=== PATIENT | female | born 1980 | race Caucasian/White ===

== ENCOUNTER 2017-03-04 12:13 | Emergency (ER) | payer OTHER ==
--- NOTE | 2017-03-04 12:22 | UC ---
Throat Pain/Nasal Jarad HPI - HPI Summary HPI Summary: 36 y/o female presents to the urgent care c/o RT ear pain, sore throat since yesterday. Pt reports she had bronchitis about 10 days ago Dx by her PCP with Bronchitis and was Rx ABXs, she can't recall the name. However about 2 days ago she had fever of 101F for which took Ibuprofen PO. Her ear pain is worse today 10/25. Pt denies fever today, cough, SOB, chest pain, abdominal pain, N/V/ D. - History of Current Complaint Chief Complaint: UCGeneralIllness Stated Complaint: RT EAR,THROAT Time Seen by Provider: 03/04/17 12:20 Hx Obtained From: Patient ?: No Onset/Duration: Gradual Onset, Lasting Days - 10 days, Still Present Severity: Moderate Pain Intensity: 7 Pain Scale Used: 0-10 Numeric Cough: None Associated Signs & Symptoms: Positive: Dysphagia, Fever - Epiglottits Risk Factors Epiglottis Risk Factors: Negative - Allergies/Home Medications Allergies/Adverse Reactions: Allergies Allergy/AdvReac Type Severity Reaction Status Date / Time Amoxicillin [From Augmentin] Allergy Severe Hives Verified 03/04/17 12:27 Clavulanic Acid Allergy Severe Hives Verified 03/04/17 12:27 [From Augmentin] Home Medications: Home Medications Fluticasone-Salmeterol 100-50* [Advair Diskus 100-50*] 1 puff BID 03/04/17 [ History Confirmed 03/04/17] Montelukast Sodium TAB* [Singulair 10 MG TAB*] 10 mg DAILY 03/04/17 [History Confirmed 03/04/17] PMH/Surg Hx/FS Hx/Imm Hx Previously Healthy: Yes Respiratory History: Asthma - Social History Occupation: Employed Full-time Lives: With Family Review of Systems Constitutional: Fever Skin: Negative Eyes: Negative ENT: Sore Throat, Ear Ache - RT ear pain Respiratory: Negative Cardiovascular: Negative Gastrointestinal: Negative Genitourinary: Negative Motor: Negative Neurovascular: Negative Musculoskeletal: Negative Neurological: Negative Psychological: Negative Is Patient Immunocompromised?: No All Other Systems Reviewed And Are Negative: Yes Physical Exam Triage Information Reviewed: Yes - Additional Comments Vital signs: reviewed General: well nourished, well developed obese female sitting in the examining table w/o any apparent distress. Skin: [place], warm and dry, no evidence of atopic dermatitis, psoriasis, seborrhea. HEENT: -Head: atraumatic, non tender; no scalp dermatitis. -Eyes: sclera and conjunctiva clear, PERRLA, EOMI -Ears: no pre- or postauricular lymphadenopathy or erythema; RTclear, Rt TM with erythema, no light reflex and mild purulent discharge. LF external ear canal clear and LF TM WNL. No fluid level, vesicles, or bullae. No perforation. -Nose/Face: erythematous and edematous nasal mucosa with clear rhinorrhea, no frontal or maxillary sinus tender to palpation. -Mouth/Throat: Mucous membrane moist, pharynx with mild erythema, no exudates.No tonsilar enalrgement, no exudates Neck: supple, FROM, nontender, no lymphadenopathy, no meningismus. Chest: Clear to auscultation, normal breath sounds Abd: soft, Bowel sounds active, Nontender. Back: no spinal or CVAT Neuro: A&O x4, GCS 15, no focal neuro deficits, normal behavior for age. Skin: warm and dry Throat Pain/Nasal Course/Dx - Course Course Of Treatment: 36 y/o female presents to the urgent care c/o RT ear pain, sore throat since yesterday. Pt reports she had bronchitis about 10 days ago Dx by her PCP with Bronchitis and was Rx ABXs, she can't recall the name. However about 2 days ago she had fever of 101F for which took Ibuprofen PO. Her ear pain is worse today /10. Pt denies fever today, cough, SOB, chest pain, abdominal pain, N/V/D.Hx obtained. Pt with RT otitis media on examination and pharyngitis.Rapid strep ordered, result: negative. Pt PCP allergic . PT Rx Z- juan PO ibuprofen PO to alleviate symptoms of ear pain and swelling. . Pt advised to rest, eat well. If symptoms do not improve or worsen advised to return to the urgent care or f/u with her PCP for further evaluation and treatment. Pt understood and agreed with D/C instructions - Differential Dx/Diagnosis Differential Diagnosis/HQI/PQRI: Influenza, Laryngitis, Mononucleosis, Otitis Media, Pharyngitis, Sinusitis, Tonsillitis, URI Provider Diagnoses: 1- RT Acute otitis media. 2-Pharyngitis Discharge - Discharge Plan Condition: Stable Disposition: HOME Prescriptions: Azithromyxin JUAN (NF) [Z-Juan (Zithromax) 250 mg tabs #6] 2 tab PO .TODAY, THEN 1 DAILY #6 tab Ibuprofen TAB* [Motrin TAB* 800 MG] 800 mg PO Q6H #20 tab Patient Education Materials: Otitis Media (ED), Pharyngitis (ED) Referrals: [facility] [place] [facility] [Outside] - If Needed Additional Instructions: 1-Please take antibiotic as directed. 2-Take ibuprofen PO after meals for pain. 3-If symptoms do not improve or worsen please f/u with your PCP or return to the urgent care for further evaluation and treatment.
[2017-03-04 12:35] VITALS: BP 119/79
== END 2017-03-04 13:12 | disposition home or self-care (01) ==
LOC: UCCORT 12:13
DX: H66.91 Otitis media, unspecified, right ear (principal); J02.9 Acute pharyngitis, unspecified
CPT/HCPCS: 87651; 99202; G0463

== ENCOUNTER 2017-05-23 10:09 | Emergency (ER) | payer OTHER ==
[2017-05-23 11:49] VITALS: BP 138/91
--- NOTE | 2017-05-23 12:24 | UC ---
Respiratory Complaint HPI - HPI Summary HPI Summary: 36 y/o female presents to the urgent care c/o productive cough and wheezing for the past two weeks. Pt reports mild wheezing that started 2 days ago w/ mild SOB when she goes outside. Pt states cough is producing a yellowish phlegm. No known fever. But have felt with chills. She has taking Mucinex PO to alleviate cough. She run out of her albuterol inhaler and liq for the nebulizer Tx. Pt denies chest pain, abdominal pain, dizziness, N/V/D. - History of Current Complaint Chief Complaint: UCRespiratory Stated Complaint: COUGH WHEEZY Time Seen by Provider: 05/23/17 12:23 Hx Obtained From: Patient Hx Last Menstrual Period: s/p Ablation and Tubal Onset/Duration: Gradual Onset, Lasting Weeks - 2 weeks, Still Present, Worse Since - 2 days ago Timing: Intermittent Episodes Severity Initially: Mild Severity Currently: Moderate Pain Intensity: 0 Pain Scale Used: 0-10 Numeric Character: Cough: Productive, Sputum Description: - yellowish Aggravating Factors: Recumbent Position Alleviating Factors: Bronchodilator, OTC Meds Associated Signs And Symptoms: Positive: Chills, Wheezing, URI, Nasal Congestion - Risk Factors Pulmonary Embolism Risk Factors: Negative Cardiac Risk Factors: Negative Pseudomonas Risk Factors: Negative Tuberculosis Risk Factors: Negative - Allergies/Home Medications Allergies/Adverse Reactions: Allergies Allergy/AdvReac Type Severity Reaction Status Date / Time clavulanic acid Allergy Hives Verified 05/23/17 11:43 Home Medications: Home Medications Cholecalciferol TAB* [Vitamin D TAB*] 2,000 units PO DAILY 05/23/17 [History Confirmed 05/23/17] LoraTADine TAB(NF) [Claritin 10 MG TAB(NF)] 10 mg PO DAILY 05/23/17 [History Confirmed 05/23/17] guaiFENesin ER TAB [Mucinex*] 600 - 1,200 mg PO BID 05/23/17 [History Confirmed 05/23/17] PMH/Surg Hx/FS Hx/Imm Hx Previously Healthy: Yes Respiratory History: Asthma - Surgical History Surgical History: Yes Surgery Procedure, Year, and Place: 1995 CYST REMOVAL LEFT MIDDLE FINGER. 2010 BIOPSY LOWER LIP. 2012 TUBAL LIGATION. 2013 ABLATION. 2013 CARPAL TUNNEL; KIDNEY STONESX2. 2015 KIDNEY STENTS - Family History Known Family History: Positive: Respiratory Disease - asthma - Social History Occupation: Employed Full-time Lives: With Family Alcohol Use: None Substance Use Type: None Smoking Status (MU): Never Smoked Tobacco Household Exposure Type: Cigarettes - Immunization History Most Recent Influenza Vaccination: 2017 Review of Systems Constitutional: Chills Skin: Negative Eyes: Negative ENT: Nasal Discharge, Sinus Congestion Respiratory: Shortness Of Breath - at times, Cough - productive, Other - wheezing Cardiovascular: Negative Gastrointestinal: Negative Genitourinary: Negative Motor: Negative Neurovascular: Negative Musculoskeletal: Negative Neurological: Negative Psychological: Negative Is Patient Immunocompromised?: No All Other Systems Reviewed And Are Negative: Yes Physical Exam Triage Information Reviewed: Yes Vital Signs: Initial Vital Signs Temp 98.3 F 05/23/17 11:42 Pulse 88 05/23/17 11:42 Resp 18 05/23/17 11:42 BP 138/91 05/23/17 11:42 Pulse Ox 100 05/23/17 11:42 - Additional Comments Vital Signs Reviewed: Yes General: well developed, well nourished female sitting in the examining table w/ o any apparent distress Eyes: Positive: Conjunctiva Clear - PERRLA, EOMI, fundi grossly normal ENT: Positive: Normal ENT inspection, Hearing grossly normal, Pharynx normal, Nasal congestion - edematous and erythematous nasal mucosa, Nasal drainage - yellowish drainage, TMs normal. Negative: Tonsillar swelling, Tonsillar exudate Neck: Positive: Supple, Nontender, No Lymphadenopathy Respiratory: no orthopnea or dyspnea. Able to speak in full sentences, no retractions or accessory muscle use, no tripod position, stridor, or head bobbing. Positive breadth sound, B/L posterior lungs w/ scattered wheezing and mild rhonchi. No rales. Cardiovascular: Positive: RRR, No Murmur, Pulses Normal, Brisk Capillary Refill Abdomen Description: Positive: Nontender, No Organomegaly, Soft. Negative: CVA Tenderness (R), CVA Tenderness (L) Bowel Sounds: Positive: Present Musculoskeletal Exam: Normal Musculoskeletal: Positive: Strength Intact, ROM Intact, No Edema Neurological Exam: Normal Psychological Exam: Normal Skin Exam: Normal UC Diagnostic Evaluation - Laboratory O2 Sat by Pulse Oximetry: 100 Respiratory Course/Dx - Course Course Of Treatment: 36 y/o female presents to the urgent care c/o productive cough and wheezing for the past two weeks. Pt reports mild wheezing that started 2 days ago w/ mild SOB when she goes outside. Pt states cough is producing a yellowish phlegm. No known fever. But have felt with chills. She has taking Mucinex PO to alleviate cough. She run out of her albuterol inhaler and liq for the nebulizer Tx. Pt denies chest pain, abdominal pain, dizziness, N /V/D. Hx obtained. Pt w/ Positive breadth sound, B/L posterior lungs w/ scattered wheezing and mild rhonchi. No rales on examination. PT w/ asthma exacerbation: due to Acute Bronchitis: Albuterol Treatment and Prednsione PO ordered, 1 Tx given to patient. Patient tolerated well treatment and lungs improved, mild wheezing only in posterior RT lung, O2 sat 100%. Patient left the clinic ambulating and feeling better. Patient prescribed Z-juan, Prednisone PO and albuterol inhaler, as directed below. The patient was recommended to increase fluid intake and rest. Pt's BP is elevated today advised to decrease salt in diet, monitor BP and f/u with PCP for further management. Patient recommended to return to the clinic or go to the nearest ER if symptoms do not improve or worsen. Patient understood and agree w/ plan of care. - Differential Dx/Diagnosis Differential Diagnosis/HQI/PQRI: Asthma, Bronchitis, Exacerbation Of COPD, Laryngitis, Lower Resp Infection, Sinusitis Provider Diagnoses: 1- Acute bronchitis. 2-Asthma exacerbation. 3- Elevated BP w/o Hx of HTN Discharge - Discharge Plan Condition: Stable Disposition: HOME Prescriptions: Albuterol 2.5MG/3ML (0.083%)* [Ventolin 2.5 MG/3 ML NEB.ISAI*] 2.5 mg INH Q6H #1 juan Albuterol HFA INHALER* [Ventolin HFA Inhaler*] 1 - 2 puff INH Q6H PRN #1 mdi PRN Reason: Wheezing Azithromyxin JUAN (NF) [Z-Juan (Zithromax) 250 mg tabs #6] 2 tab PO .TODAY, THEN 1 DAILY #6 tab predniSONE TAB* [Deltasone TAB*] 20 mg PO DAILY #8 tab Patient Education Materials: Asthma (ED), Acute Bronchitis (ED), Low-Sodium Diet (ED) Referrals: [facility] [place] [facility] [Outside] - 2 Days Additional Instructions: 1-Please take full course of antibiotic to avoid resistance. 2-Continue taking Mucinex PO tabs for your cough and use the albuterol inhaler to alleviate wheezing. Increase fluid intake, rest and eat well. 3- If symptoms do not improve or worsen or your develop SOB with fever and severe wheezing please go immediately to the ER further evaluation and treatment. 4- F/u with your PCP in 2-3 days for further management on your Asthma 5-Your BP is elevated today. please decrease salt in your diet, monitor BP and if it continues to be elevated please f/u with your PCP for further management
[2017-05-23] MEDS ORDERED: Albuterol 2.5 MG/3 ML NEB.SOL* (0.083%) INH ONE (12:41)
[2017-05-23] MEDS ORDERED: predniSONE TAB* 20 MG PO ONE (12:41)
== END 2017-05-23 13:38 | disposition home or self-care (01) ==
LOC: UCCORT 10:09
DX: J20.9 Acute bronchitis, unspecified (principal); J45.901 Unspecified asthma with (acute) exacerbation; R03.0 Elevated blood-pressure reading, without diagnosis of hypertension
CPT/HCPCS: 99212; G0463; J7512

== ENCOUNTER 2017-06-05 09:22 | Emergency (ER) | payer OTHER ==
[2017-06-05 11:28] VITALS: BP 138/79
--- NOTE | 2017-06-05 11:54 | UC ---
Shoulder Pain HPI - HPI Summary HPI Summary: 36 yo female with on and off right shoulder pain x 1 yr has been constant x 2 weeks hurts to lay on it no relief with NSAIDs no relief with muscle relaxants has not had XRs - History of Current Complaint Chief Complaint: UCUpperExtremity Stated Complaint: RIGHT SHOULDER PAIN Time Seen by Provider: 06/05/17 11:18 Hx Obtained From: Patient Hx Last Menstrual Period: s/p Ablation and Tubal Onset/Duration: Gradual Onset Severity Currently: Moderate Pain Intensity: 8 Pain Scale Used: 0-10 Numeric Character: Aching, Throbbing Aggravating Factor(s): Movement Alleviating Factor(s): Nothing Associated Signs And Symptoms: Positive: Negative Related History: Dominant Hand Right - Allergies/Home Medications Allergies/Adverse Reactions: Allergies Allergy/AdvReac Type Severity Reaction Status Date / Time clavulanic acid Allergy Hives Verified 06/05/17 11:28 Home Medications: Home Medications Migraine Medicine 1 dose PO ONCE PRN 06/05/17 [History Confirmed 06/05/17] Naproxen Sodium [Aleve] 440 mg PO ONCE 06/05/17 [History Confirmed 06/05/17] PMH/Surg Hx/FS Hx/Imm Hx Previously Healthy: Yes - Surgical History Surgical History: Yes Surgery Procedure, Year, and Place: 1995 CYST REMOVAL LEFT MIDDLE FINGER. 2010 BIOPSY LOWER LIP. 2012 TUBAL LIGATION. 2013 ABLATION. 2014 CARPAL TUNNEL; KIDNEY STONESX2. 2015 KIDNEY STENTS - Family History Known Family History: Positive: Hypertension, Diabetes, Respiratory Disease - asthma - Social History Alcohol Use: None Substance Use Type: None Smoking Status (MU): Never Smoked Tobacco Household Exposure Type: Cigarettes - Immunization History Most Recent Influenza Vaccination: 2017 Review of Systems Constitutional: Negative Skin: Negative Eyes: Negative ENT: Negative Respiratory: Negative Cardiovascular: Negative Gastrointestinal: Negative Genitourinary: Negative Motor: Negative Neurovascular: Negative Musculoskeletal: Arthralgia Neurological: Negative Psychological: Negative Is Patient Immunocompromised?: No All Other Systems Reviewed And Are Negative: Yes Physical Exam Triage Information Reviewed: Yes Appearance: Well-Appearing, No Pain Distress, Well-Nourished Vital Signs: Initial Vital Signs Temp 99.0 F 06/05/17 11:25 Pulse 105 06/05/17 11:25 Resp 14 06/05/17 11:25 BP 138/79 02/18/18 11:25 Pulse Ox 95 06/05/17 11:25 Eyes: Positive: Conjunctiva Clear ENT: Positive: Normal ENT inspection Neck: Positive: Supple, Nontender, No Lymphadenopathy Respiratory: Positive: Lungs clear, Normal breath sounds, No respiratory distress, No accessory muscle use Cardiovascular: Positive: RRR, No Murmur Musculoskeletal: Positive: ROM Intact - but painful, No Edema Neurological: Positive: Alert Psychological Exam: Normal Skin Exam: Normal Diagnostics - Radiology No standard instances Xray Interpretation: No Acute Changes Radiology Interpretation Completed By: Radiologist Shoulder Course/Dx - Differential Dx/Diagnosis Provider Diagnoses: RIGHT SHOULDER PAIN SUSPECT TENDONITIS Discharge - Discharge Plan Condition: Stable Disposition: HOME Patient Education Materials: Shoulder Pain (ED) Referrals: Parag Rm MD [Medical Doctor] - 1 Week Tiffany Thorne NP [Primary Care Provider] - If Needed Additional Instructions: ALEVE 2 TWICE DAILY WITH FOOD FOR PAIN
--- NOTE | 2017-06-05 12:08 | RAD ---
INDICATION: Intermittent right shoulder pain. TECHNIQUE: 4 views of the right shoulder were obtained. FINDINGS: The bones are in normal alignment. No fracture is seen. Joint spaces appear maintained. IMPRESSION: NO EVIDENCE OF FRACTURE.
[2017-06-05] MEDS ORDERED: Triamcinolone Acetonide* 40 MG/ML 1 ML VIAL IM ONE (12:22)
== END 2017-06-05 12:49 | disposition home or self-care (01) ==
LOC: UCCORT 09:22
DX: M25.511 Pain in right shoulder (principal); Z88.1 Allergy status to other antibiotic agents
CPT/HCPCS: 96372; 99211; G0463; J3301

== ENCOUNTER 2017-08-06 09:58 | Emergency (ER) | payer OTHER ==
[2017-08-06 11:16] VITALS: BP 146/77
--- NOTE | 2017-08-06 11:23 | UC ---
UC General HPI - HPI Summary HPI Summary: Pt is c/o a cough, sob and some wheezing for 2 weeks. it began with a cold. she has asthma but ran out of her inhaler and neb solutions. no cp or fever. - History of Current Complaint Chief Complaint: UCRespiratory Stated Complaint: COUGH/CONGESTION Time Seen by Provider: 08/06/17 11:17 Hx Obtained From: Patient Hx Last Menstrual Period: early July Onset/Duration: Gradual Onset Timing: Constant Pain Intensity: 0 Aggravating: nothing Alleviating: nothing Associated Signs & Symptoms: Positive: SOB, Wheezing. Negative: Fever - Allergy/Home Medications Allergies/Adverse Reactions: Allergies Allergy/AdvReac Type Severity Reaction Status Date / Time amoxicillin [From Augmentin] Allergy Hives Verified 08/06/17 11:18 clavulanic acid Allergy Hives Verified 06/05/17 11:28 Home Medications: Home Medications Cholecalciferol TAB* [Vitamin D TAB*] 2,000 units PO DAILY 08/06/17 [History Confirmed 08/06/17] guaiFENesin ER TAB [Mucinex*] 600 mg PO BID 08/06/17 [History Confirmed 08/06/17 ] PMH/Surg Hx/FS Hx/Imm Hx - Additional Past Medical History Additional PMH: allergies Respiratory History: Asthma Neurological History: Migraine - Surgical History Surgical History: Yes Surgery Procedure, Year, and Place: 1995 CYST REMOVAL LEFT MIDDLE FINGER. 2010 BIOPSY LOWER LIP. 2012 TUBAL LIGATION. 2013 ABLATION uterine. 2014 CARPAL TUNNEL; KIDNEY STONESX2. 2015 KIDNEY STENTS - Family History Known Family History: Positive: Hypertension, Diabetes, Respiratory Disease - asthma - Social History Occupation: Employed Full-time Lives: With Family Alcohol Use: None Substance Use Type: None Smoking Status (MU): Never Smoked Tobacco Household Exposure Type: Cigarettes - Immunization History Most Recent Influenza Vaccination: 2017 Vaccination Up to Date: Yes Review of Systems Constitutional: Negative Skin: Negative Eyes: Negative ENT: Sore Throat, Nasal Discharge Respiratory: Shortness Of Breath, Cough Cardiovascular: Negative Gastrointestinal: Negative Genitourinary: Negative Motor: Negative Neurovascular: Negative Musculoskeletal: Negative Neurological: Negative Psychological: Negative Is Patient Immunocompromised?: No All Other Systems Reviewed And Are Negative: Yes Physical Exam Triage Information Reviewed: Yes Appearance: Well-Appearing Vital Signs: Initial Vital Signs Temp 99.6 F 08/06/17 11:07 Pulse 87 08/06/17 11:07 Resp 20 08/06/17 11:07 BP 146/77 08/06/17 11:07 Pulse Ox 99 08/06/17 11:07 Vital Signs Reviewed: Yes Eyes: Positive: Conjunctiva Clear ENT: Positive: Pharynx normal, TMs normal. Negative: Nasal drainage Neck: Positive: Supple, Nontender, No Lymphadenopathy Respiratory: Positive: No respiratory distress, No accessory muscle use, Decreased breath sounds, Wheezing - occasional wheezes, Other: - cough is bronchospastic Cardiovascular: Positive: RRR, No Murmur Abdomen Description: Positive: Nontender, No Organomegaly, Soft Bowel Sounds: Positive: Present Musculoskeletal: Positive: ROM Intact Neurological: Positive: Alert Psychological: Positive: Age Appropriate Behavior Skin Exam: Normal Course/Dx - Course Course Of Treatment: no hx HTN, I think BP illness related. will have BP rechecked on f/u visit. work note declined. pt off until tuesday. - Differential Dx - Multi-Symptom Provider Diagnoses: asthma flare Discharge - Sign-Out/Discharge Documenting (check all that apply): Discharge - Discharge Plan Condition: Stable Disposition: HOME Prescriptions: Albuterol 2.5MG/3ML (0.083%)* [Ventolin 2.5 MG/3 ML NEB.ISAI*] 2.5 mg INH Q6H PRN #1 box PRN Reason: Sob/Wheezing Albuterol HFA INHALER* [Ventolin HFA Inhaler*] 2 puff INH Q6H #1 mdi predniSONE TAB* [Deltasone TAB*] 40 mg PO DAILY 5 Days #10 tab Patient Education Materials: Asthma (ED) Referrals: Rosalba Winters MD [Primary Care Provider] - 5 Days Additional Instructions: USE THE ALBUTEROL INHALER OR NEBULIZER BUT NOT BOTH AT THE SAME TIME. - Billing Disposition and Condition Condition: STABLE Disposition: HOME
== END 2017-08-06 11:50 | disposition home or self-care (01) ==
LOC: UCCORT 09:58
DX: J45.909 Unspecified asthma, uncomplicated (principal); Z88.3 Allergy status to other anti-infective agents; Z88.8 Allergy status to other drugs, medicaments and biological substances
CPT/HCPCS: 99212; G0463

== ENCOUNTER 2017-09-16 09:08 | Emergency (ER) | payer OTHER ==
--- OUTSIDE RECORDS SUMMARY | 2017-09-16 11:08 | XMS REPORT ---
:1980 External Reference #:[id number] Author Organization [facility] 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 Tender Unavailable Rosalba Winters MD Primary Care Physician Unavailable Payers Type Date Identification Numbers Payment Provider Subscriber Commercial Policy Number: [id number] [facility] Caroline Borges PayID: [id number] [address] [place] [address] Problems Date Description Provider Status Onset: 06/24/2017 Obesity Rosalba Winters MD Active Onset: 06/24/2017 Migraine with typical aura Rosalba Winters MD Active Onset: 06/24/2017 Impaired fasting glycaemia Rosalba Winters MD Active Onset: 06/24/2017 Mild persistent asthma Rosalba Winters MD Active Onset: 02/01/2017 Sprain of ankle Samuel Walters M.D. Active Onset: 02/01/2017 Arthralgia of the ankle and/or foot Samuel Walters M.D. Active Family History Date Family Member(s) Problem(s) Comments Father Diabetes Mother Asthma Mother Fibromyalgia Children 3 Siblings 4 Social History Type Date Description Comments Lives With Son Occupation Currently Working [employer] Work Status Currently Working Hand Dominance Right-handed Cigarette Use Never Smoked Cigarettes ETOH Use Denies alcohol use Recreational Drug Use Never Used Drugs Smoking Patient has never smoked Daily Caffeine Does Not Consume Caffeine Allergies, Adverse Reactions, Alerts Date Description Reaction Status Severity Comments 02/01/2017 Penicillin active 02/01/2017 Wheat active 02/01/2017 Tomatoes active 06/24/2017 Augmentin active 08/22/2017 Lettuce active 08/22/2017 Soy active Medications Medication Date Status Form Strength Qnty SIG Indications Ordering Provider Advair Diskus 08/22 Active Aerosol 250-50mcg 1unit 1 puff /Dose s twice a Savita Huynh day, rinse after administrat ion. Mucinex 08/22 Active Tablets 600mg 30tab 1 tab by R05 ER 12HR s mouth twice Savita Huynh a day Nystatin 08/22 Hx Cream 045244Hmn 45gm apply to B37.2 t/GM affected Savita Huynh - area of the 09/01 groin twice /2017 a day for 7-10 days Ventolin HFA Active Aerosol 108(90Bas Inhale Two Unknown /0000 e) Puffs By mcg/Act Mouth Every 6 Hours as Needed Ibuprofen Active Tablets 800mg Unknown /0000 Triamcinolone Active Aerosol 55mcg/Act [place] 2 Unknown Acetonide /0000 Sprays Intranasall y Once Daily Loratadine Active Tablets 10mg Take One Unknown /0000 Tablet By Mouth Every Day Montelukast Sodium Active Tablets 10mg Fadumo,Er /0000 ika J [employer] Sumatriptan Active Tablets 50mg Fadumo,Er Succinate /0000 ika J [employer] WORK[employer] Meloxicam 03/08 Hx Tablets 15mg 30tab 1 by mouth s every day Abraham Ricks M.D. 06/24 Claritin-D 12 Hour Hx Tablets 5-120mg 1 by mouth Unknown /0000 ER 12HR twice a day - as needed 06/24 for congestion/ allergies Advair Diskus Hx Aerosol 100-50mcg 1 puff bid Rosalba /0000 /Dose Abraham Winters MD 08/22 Methylprednisolone Hx TBPK 4mg Fadumo,Er /0000 ika Buck [employer] WORKER - 06/24 Doxycycline Hx Capsules 100mg Fadumo,Er Hyclate /0000 ika Buck FLOWERS - 03/08 Azithromycin 00 Hx Tablets 250mg Unknown /0000 - 06/24 Vital Signs Date Vital Result Comment 08/22/2017 BP Systolic Sitting Right Arm 122 mmHg BP Diastolic Sitting Right Arm 64 mmHg Body Temperature 98.8 F Heart Rate 115 /min Weight 289.00 lb O2 % BldC Oximetry 98 % 06/24/2017 BP Systolic Sitting Right Arm 112 mmHg BP Diastolic Sitting Right Arm 80 mmHg Body Temperature 98.9 F Heart Rate 107 /min Height 65.5 inches 5'5.50" Weight 277.00 lb BMI (Body Mass Index) 45.4 kg/m2 BSA (Body Surface Area) 2.28 m2 [place] body weight in kilograms 58 O2 % BldC Oximetry 98 % 02/01/2017 BP Systolic Sitting Right Arm 145 mmHg BP Diastolic Sitting Right Arm 92 mmHg Heart Rate 88 /min Height 64 inches 5'4" Weight 279.00 lb BMI (Body Mass Index) 47.9 kg/m2 BSA (Body Surface Area) 2.25 m2 [place] body weight in kilograms 54 Results Description No Information Procedures Date CPT Code Description Status 03/08/2017 36300 Radiology, Elbow Complete Completed 02/01/2017 16573 Radiology, Foot, Complete-3 Views Completed 02/01/2017 75270 Radiology, Ankle Complete Completed Encounters Type Date Location Provider CPT E/M Dx Office Visit 06/24/2017 11:15a [place] [address] J45.30 G43.109 E66.9 Office Visit 03/08/2017 9:45a Orthopaedic Office NABIL Hsieh 74391 M77.11 M77.12 Office Visit 03/03/2017 1:30p Orthopaedic Office Samuel Walters 35592 S93.402D M.D. Office Visit 02/01/2017 10:00a Orthopaedic Office Samuel Walters 14741 S93.402A M.DCarlos Enrique M25.572 X50.0xxA Plan of Care 08/22/2017 - NABIL ChauhanJ45.30 Mild persistent asthma, uncomplicatedGoals: Increase dose of Advair and continue twice daily.R05 CoughNew Medication: Mucinex 600 mgNew Labs:CBS W/Automated DiffComprehensive Metabolic PanelNew Xrays:Chest, 2 ViewsComments:Start Mucinex. Drink plenty of water. X-ray to be done at the hospital. Order is at the front office administrator here. Will call with results and discuss further treatment, if indicated.Follow up:2 weeks.B37.2 Candidiasis of skin and nailNew Medication:Nystatin 046850 Unit/GMComments:Continue to work on keeping this area clean and dry. Apply the Nystatin twice daily until the rash resolves.
--- OUTSIDE RECORDS SUMMARY | 2017-09-16 11:08 | XMS REPORT ---
:1980 External Reference #:[id number] Author Organization [facility] Address [address], [address] [place] [address] Phone [phone] Care Team Providers Name Role Phone Kimberli Perez PA Care Team Information Director Of Industrial Relations Unavailable Kimberli Perez PA Primary Care Physician Unavailable Payers Type Date Identification Numbers Payment Provider Subscriber Commercial Policy Number: [id number] [facility] Caroline Borges PayID: [id number] [address] [place] [address] Problems Date Description Provider Status Onset: 06/24/2017 [...] Comments Lives With Son Occupation Currently Working [employer] Work Status Currently Working Hand Dominance Right-handed [...] Form Strength Qnty SIG Indications Ordering Provider Topamax 09/05 Active Tablets 50mg 60tab Take 1 G43.109 s tablet by Savita Huynh mouth 2 times per day for treatment to prevent migraine headaches Advair Diskus 08/22 Active Aerosol 250-50mcg 1unit 1 puff /Dose s twice a Savita Huynh day, rinse after administrat ion. Mucinex 08/22 Active Tablets 600mg 30tab 1 tab by R05 ER 12HR s mouth twice Savita Huynh a day Ventolin HFA Active Aerosol 108(90Bas Inhale Two Unknown /0000 e) Puffs By mcg/Act Mouth Every 6 Hours as Needed Ibuprofen Active Tablets 800mg Unknown /0000 Triamcinolone Active Aerosol 55mcg/Act [place] 2 Unknown Acetonide /0000 Sprays Intranasall y Once Daily Loratadine Active Tablets 10mg Take One Unknown /0000 Tablet By Mouth Every Day Montelukast Sodium Active Tablets 10mg Fadumo,Er /0000 tasneem FLOWERS Sumatriptan Active Tablets 50mg Fadumo,Er Succinate /0000 ikaddie FLOWERS Nystatin 08/22 Hx Cream 613402Ydw 45gm apply to B37.2 t/GM affected Savita Huynh - area of the 09/01 groin a day for 7-10 days Meloxicam 03/08 Hx Tablets 15mg 30tab 1 by mouth donna every day Abraham Ricks M.D. 06/24 Claritin-D 12 Hour Hx Tablets 5-120mg 1 by mouth Unknown /0000 ER 12HR twice a day - as needed 06/24 congestion/ allergies Advair Diskus Hx Aerosol 100-50mcg 1 puff bid Rosalba / /Dose Abraham Winters MD 08/22 Methylprednisolone Hx TBPK 4mg Fadumo,Er /0000 tasneem FLOWERS - 06/24 Doxycycline Hx Capsules 100mg Fadumo,Er Hyclate /0000 tasneem FLOWERS - 03/08 Azithromycin Hx Tablets 250mg Unknown /0000 - 06/24 Vital Signs Date Vital Result Comment 09/05/2017 BP Systolic Sitting Left Arm 114 mmHg BP Diastolic Sitting Left Arm 64 mmHg Body Temperature 98.1 F Heart Rate 86 /min Weight 289.50 lb O2 % BldC Oximetry 97 % 08/22/2017 BP Systolic Sitting Right Arm 122 [...] kg/m2 BSA (Body Surface Area) 2.28 m2 [place] body weight in kilograms 58 O2 % BldC Oximetry 98 % 02/01/2017 BP Systolic Sitting Right Arm 145 mmHg BP Diastolic Sitting Right Arm 92 mmHg Heart Rate 88 /min Height 64 inches 5'4" Weight 279.00 lb BMI (Body Mass Index) 47.9 kg/m2 BSA (Body Surface Area) 2.25 m2 [place] body weight in kilograms 54 Results Test Date Test Result H/L Range Note CBS W/Automated Diff 08/22/2017 White Blood Count 8.9 K/uL 3.1-10.7 1 Red Blood Count 5.27 M/uL 3.90-5.40 1 Hemoglobin 14.2 gm/dL 11.6-15.8 1 Hematocrit 42.2 % 36.0-46.1 1 Mean Cell Volume 80.1 fl Low 80.9-99.0 1 Mean Corpuscular HGB 26.9 pg 25.9-32.7 1 Mean Corpuscular HGB Conc 33.6 g/dL 30.8-34.3 1 Platelet Count 276 K/uL 155-360 1 Red Cell Distri Width SD 39.8 fl 3-47 1 Red Cell Distri Width %CV 13.9 % 11.7-14.4 1 Mean Platelet Volume 10.7 fL 8.9-12.4 1 Neut% 63.4 % 40.4-72.8 1 Lymph % 21.2 % 20.0-42.0 1 [place] % 7.9 % 4.3-13.2 1 Eo% 7.4 % High 0.0-6.6 1 Bas% 0.1 % 0.0-1.1 1 Neut# 5.61 K/uL 1.8-7.0 1 Lymph # 1.88 K/uL 1.0-4.0 1 [place] # 0.70 K/uL 0.3-0.9 1 Eos # 0.66 K/uL High 0.0-0.5 1 Baso # 0.01 K/uL 0.0-0.1 1 Comprehensive Metabolic Panel 08/22/2017 Glucose 120 mg/dL High 74-106 1 BUN 8 mg/dL 7-18 1 Creatinine 0.8 mg/dL 0.6-1.3 1 Glom Filtration Rate, Estimate >60 mL/min >60 1 If >60 mL/min >60 1, 2 BUN/Creat 10.0 ratio 1 Sodium 140 mmol/L 136-145 1 Potassium 4.1 mmol/L 3.5-5.1 1 Chloride 107 mmol/L 98-107 1 Carbon Dioxide 25 mmol/L 21-32 1 Anion Gap 8 mEq/L 8-16 1 Calcium 9.5 mg/dL 8.5-10.1 1 Total Protein 7.4 g/dL 6.4-8.2 1 Albumin 3.3 g/dL Low 3.4-5.0 1 Globulin 4.1 g/dL 1.9-4.3 1 Alb/Glob 0.8 ratio 1 Bilirubin,Total 0.2 mg/dL 0.2-1.0 1 Sgot/Ast 13 U/L Low 15-37 1, 3 SGPT/Alt 27 U/L 12-78 1 Alkaline Phosphatase 73 U/L 45-117 1 Laboratory test finding 08/22/2017 Slide Review DIFF ORDERED 1 Differential-WBC Confirm 08/22/2017 Total Cells Counted 100 #CELLS 1 Metamyelocyte% 1 % 0% 1 Band% 3 % 0-8 1 Neutrophils% 53 % 33-73 1 Lymph% 24 % 20-42 1 Atypical Lymph% 3 % 0-7 1 Monocyte% 7 % 0-10 1 Eosinophil% 9 % High 0-5 1 Platelet Estimate NORMAL 1 Polychromasia 0-1+ 1 Poikilocytosis 0-1+ 1 Anisocytosis 0-1+ 1 Microcytosis 0-1+ 1 1 R05 2 Note: Persistent reduction for 3 months or more in an eGFR <60 mL/min/1.73 m2 defines CKD. Patients with eGFR values >/=60 mL/min/1.73 m2 may also have CKD if evidence of persistent proteinuria is present. The original MDRD equation for estimated GFR is not valid for patients less than 18 years of age. Additional information may be found at www.kdoqi.org. 3 Values below the stated reference ranges of AST and ALT can be seen in normal populations. Clinical correlation is suggested. Procedures Date CPT Code Description Status 03/08/2017 06639 Radiology, Elbow Complete Completed 02/01/2017 08712 Radiology, Foot, Complete-3 Views Completed 02/01/2017 52479 Radiology, Ankle Complete Completed Encounters Type Date Location Provider CPT E/M Dx Office Visit 09/05/2017 10:45a Family Medicine NABIL Chauhan 42489 J45.30 B37.2 G43.109 J30.9 Office Visit 08/22/2017 2:30p Family Medicine NABIL Chauhan 60907 J45.30 R05 B37.2 Office Visit 06/24/2017 11:15[place] [address] J45.30 G43.109 E66.9 Office Visit 03/08/2017 9:45a Orthopaedic Office NABIL Hsieh 34594 M77.11 M77.12 Office Visit 03/03/2017 1:30p Orthopaedic Office Samuel Walters 67205 S93.402D M.D. Office Visit 02/01/2017 10:00a Orthopaedic Office Samuel Walters 83273 S93.402A M.D. M25.572 X50.0xxA Plan of Care Future Appointment(s):12/07/2017 1:00 pm - NABIL Chauhan at [facility]10/05/2017 1:15 pm - NABIL Chauhan at [facility]09/05/2017 - NABIL ChauhanJ45.30 Mild persistent asthma, uncomplicatedComments:Continue with Adviar twice daily. Contonue the mucinex. Use the Ventolin as needed. Drink plenty offluid.Follow up:3 rfgvilE66.2 Candidiasis of skin and nailComments:Resolved. Continue to work on keeping the area dry.G43.109 Migraine with aura, not intractable, w/o status migrainosusNew Medication: Topamax 50 mgComments:Sumatriptan is not working well. Please sign record release for previous records. Will start with Daily Topamax.Follow up:1 month records ibirijxG28.9 Allergic rhinitis, unspecifiedComments:COnitnue your Loratidine, Singulair and Flonase. Keep windows shut at home. Dust frequently. Stay indoors when needed. The polen will decrease in a few weeks and the symptoms should improve.
[2017-09-16 11:25] VITALS: BP 123/74
--- NOTE | 2017-09-16 11:51 | UC ---
Lower Extremity/Ankle HPI - HPI Summary HPI Summary: 36 y/o female presents to the urgent care c/o left heel pain s/p falling going down the stair and hitting the cement w/ her left heel last Tuesday. Pain is 6/10 w/ walking and 0/10 at rest. She has been limping. She applied ice and elevated her ankle. Pt wants to make sure she doesn't have a fracture since last year 11/2016 she fracture same ankle. Pt denies calf pain, fever, numbness or tingling over the foot or ankle. Pt denies SOB, chest pain, abdominal pain, N/V/D. Pt has not taking anything to alleviate symptoms - History of Current Complaint Chief Complaint: UCLowerExtremity Stated Complaint: LEFT FOOT COMP Time Seen by Provider: 09/16/17 11:48 Hx Obtained From: Patient Hx Last Menstrual Period: 09/02 ?: No - Pt w/ Hx of B/L tubal ligation Onset/Duration: Gradual Onset, Lasting Days - 3 days, Still Present, Worse Since - last night Severity Initially: Moderate Severity Currently: Moderate Pain Intensity: 6 Pain Scale Used: 0-10 Numeric Aggravating Factor(s): Standing, Ambulation Alleviating Factor(s): Rest, Elevation Able to Bear Weight: Yes - Risk Factors Gout Risk Factors: Negative DVT Risk Factors: Negative Septic Arthritis Risk Factor: Negative - Allergies/Home Medications Allergies/Adverse Reactions: Allergies Allergy/AdvReac Type Severity Reaction Status Date / Time amoxicillin [From Augmentin] Allergy Hives Verified 08/06/17 11:18 clavulanic acid Allergy Hives Verified 06/05/17 11:28 Home Medications: Home Medications Cetirizine* [ZyrTEC 10 MG TAB*] 10 mg PO DAILY 09/16/17 [History Confirmed 09/16] Fluticasone-Salmeterol 250-50* [Advair Diskus 250-50*] 1 puff INH DAILY [History Confirmed 09/16/17] Loratadine [Claritin] 10 mg PO DAILY 09/16/17 [History Confirmed 09/16/17] Topiramate TAB(*) [Topamax 25 MG tab] 25 mg PO BID 09/16/17 [History Confirmed 09/16/17] PMH/Surg Hx/FS Hx/Imm Hx Previously Healthy: Yes Respiratory History: Asthma - Surgical History Surgical History: Yes Surgery Procedure, Year, and Place: 1995 CYST REMOVAL LEFT MIDDLE FINGER. 2010 BIOPSY LOWER LIP. 2012 TUBAL LIGATION. 2013 ABLATION uterine. 2013 CARPAL TUNNEL; KIDNEY STONESX2. 2015 KIDNEY STENTS. URETERAL VALVE REPAIR - Family History Known Family History: Positive: Hypertension, Diabetes, Respiratory Disease - asthma - Social History Occupation: Employed Full-time Lives: With Family Alcohol Use: None Substance Use Type: None Smoking Status (MU): Never Smoked Tobacco Household Exposure Type: Cigarettes - Immunization History Most Recent Influenza Vaccination: 2017 Vaccination Up to Date: Yes Review of Systems Constitutional: Negative Skin: Negative Eyes: Negative ENT: Negative Respiratory: Negative Cardiovascular: Negative Gastrointestinal: Negative Genitourinary: Negative Motor: Negative Neurovascular: Negative Musculoskeletal: Decreased ROM - left ankle, Other: - left heel pain s/p fall Neurological: Negative Psychological: Negative Is Patient Immunocompromised?: No All Other Systems Reviewed And Are Negative: Yes Physical Exam - Summary Physical Exam Summary: Vital Signs Reviewed: Yes General: well developed, well nourished obese female, sitting in the examining table w/o any apparent distress Eyes: Positive: Conjunctiva Clear - PERRLA, EOMI, ENT: Positive: Normal ENT inspection, Hearing grossly normal, Pharynx normal, TMs normal Neck: Positive: Supple, Nontender, No Lymphadenopathy Respiratory: Positive: Chest non-tender, Lungs clear, Normal breath sounds, No respiratory distress Cardiovascular: Positive: RRR, No Murmur, Pulses Normal, Brisk Capillary Refill Abdomen Description: Positive: Nontender, No Organomegaly, Soft. Negative: CVA Tenderness (R), CVA Tenderness (L) Bowel Sounds: Positive: Present Musculoskeletal: - Ankle: Pt is able to bear weight and ambulate w/ limping. The L ankle is without obvious asymmetry or deformity when compared to the R ankle. Decreased ROM due to pain. mild swelling at the lateral side of left heel w/ tendernessw to aplaption over the heel. No swelling at the lateral malleolus, No ecchymosis or bruising observed. Not tenderness to palpation over the medial malleolus , no swelling observed. Talar tilt test is negative for ligament laxity to valgus or varus stress. Negative anterior drawer. Peroneal nerve is intact with strong eversion and plantar flexion. Positive sensation over the LF foot and LF ankle, positive pulses, capillary refill intact Neurological Exam: Normal Psychological Exam: Normal Skin: warm and dry Triage Information Reviewed: Yes Vital Signs: Initial Vital Signs Temp 98.1 F 09/16/17 11:09 Pulse 88 09/16/17 11:09 Resp 19 09/16/17 11:09 BP 123/74 09/16/17 11:09 Pulse Ox 100 09/16/17 11:09 Lower Extremity Course/Dx - Course Course Of Treatment: 36 y/o female presents to the urgent care c/o left heel pain s/p falling going down the stair and hitting the cement w/ her left heel last Tuesday09/14/2017. Pain is 6/10 w/ walking and 0/10 at rest. She has been limping. She applied ice and elevated her ankle. Pt wants to make sure she doesn't have a fracture since last year 11/2016 she fracture same ankle. Pt denies calf pain, fever, numbness or tingling over the foot or ankle. Pt denies SOB, chest pain, abdominal pain, N/V/D.Pt has not taking anything to alleviate symptoms. Hx obtained. Rt ankle X-ray ordered, Impression: Soft tissue swelling, no acute fracture. Pt most likely with a RT ankle Sprain. Pt immobilized with gel ankle splint to , given crutches to avoid weight bearing, Rx Ibuprofen PO to decrease swelling and pain. Pt advised RICE, take Ibuprofen PO for pain and to f/u with PCP on orthopedic in 1 week if not improvement of symptoms for further treatment. Parents and Pt understood and agreed and left the clinic ambulating w/ the help of crutches. - Differential Dx/Diagnosis Differential Diagnosis/HQI/PQRI: Arthritis, Contusion, Fracture (Closed), Sprain , Strain, Tendonitis Provider Diagnoses: 1- Acute left heel pain s/p falling Discharge - Discharge Plan Condition: Stable Disposition: HOME Referrals: Kimberli Perez PA [Primary Care Provider] - 1 Week Paolo Reynaga MD [Medical Doctor] - 1 Week - Billing Disposition and Condition Condition: STABLE Disposition: HOME
--- NOTE | 2017-09-16 12:19 | RAD ---
Indication: Left ankle injury. 3 views of left ankle demonstrates ankle mortise intact. There is no fracture or dislocation. No other bone or joint abnormality. IMPRESSION: Unremarkable left ankle.
== END 2017-09-16 12:45 | disposition home or self-care (01) ==
LOC: UCCORT 09:08
DX: M79.672 Pain in left foot (principal); W10.9XXA Fall (on) (from) unspecified stairs and steps, initial encounter; Y93.9 Activity, unspecified; Y92.9 Unspecified place or not applicable; Z88.0 Allergy status to penicillin; Z88.8 Allergy status to other drugs, medicaments and biological substances; J45.909 Unspecified asthma, uncomplicated
CPT/HCPCS: 99212; G0463